=== PATIENT | male | born 1945 ===

== ENCOUNTER 2023-09-29 12:29 | Outpatient (AMB) | payer OTHER, SELFPAY ==
--- NOTE | 2023-09-29 12:36 | MHC.OFFVIS ---
Vital Signs 09/29/23 12:38 Height 5 ft 8 in Weight 154 lb 5.177 oz BMI 23.5 BP 120/76 Blood Pressure Location Lt brachial Position Sitting Pulse 64 Intake Visit Reasons: TIER OVER/ [facility] Dr. Juan Pablo Quintanilla / preop/afib Intake Note: New patient dx afib need pre-op clearance feeling good Executive Admin Required: No Allergies No Known Allergies Allergy (Unverified 02/14/20 15:49) Medication List - Last Reconciled 09/29/23 by Wale Johnson MD atorvastatin 40 mg PO BEDTIME multivitamin (Multiple Vitamins tablet) 1 tab PO DAILY HPI Comments Details: Thank you for referring Juan Pablo in cardiology consultation today for management of atrial fibrillation and for preoperative cardiovascular risk stratification. He has a 78-year-old male was diagnose atrial fibrillation last few years. He was started on Eliquis therapy appropriately although he started noticing skin ecchymosis and decided to stop Eliquis on his own about couple years ago. He said he is done well since then. He has not aware of him being in atrial fibrillation per day when I mentioned that his EKG today shows atrial fibrillation said he does not believe with. However he has no exertional symptoms. He said walks many miles a day and still goes hiking and has no symptoms exertional chest pain or shortness of breath. Denies orthopnea, PND, leg edema. Denies any symptoms of prolonged palpitation irregular heartbeat. No neurologic symptoms. He is scheduled to undergo inguinal hernia surgery in the near future. [facility] Medical History (Updated 09/29/23 @ 16:23 by Wale Johnson MD) Chronic atrial fibrillation Hx of cataract Surgical History Hx of knee surgery Family History Father Brain tumor Mother No problems noted. Social History Patient Tobacco Use Status: Never used Tobacco Review of Systems Const Denies chills, Denies daytime sleepiness, Denies fatigue, Denies fever(s), Denies frequent falls, Denies poor appetite, Denies snoring, Denies stops breathing during sleep, Denies weakness, Denies weight gain and Denies weight loss Eyes Denies loss of vision ENT Denies dizziness and Denies hearing loss Card Denies chest pain, Denies claudication, Denies leg edema, Denies lightheadedness, Denies palpitations, Denies dyspnea, Denies dyspnea on exertion and Denies orthopnea Resp Denies cough, Denies excessive phlegm production, Denies dyspnea, Denies dyspnea on exertion, Denies snoring and Denies wheezing GI Denies abdominal pain, Denies hematochezia, Denies change in bowel habits, Denies nausea and Denies vomiting Denies dysuria and Denies urinary frequency Musc Denies arthralgias, Denies muscle weakness, Denies numbness and Denies other (frequent falls) Skin/Breast Denies nail changes and Denies rash Neuro Denies Abnormal speech present, Denies dizziness, Denies frequent falls, Denies loss of vision, Denies memory loss, Denies numbness and Denies weakness Psych Denies depression and Denies memory loss Endo Denies fatigue and Denies palpitations Daniele/Lymph Reports easy bruising and Reports other (anemia) Aller/Immun Denies wheezing Physical Exam Vital Signs: Last Vital Signs Pulse 64 09/29/23 12:38 BP 120/76 09/29/23 12:38 BMI result Body Mass Index 23.5 Const General: cooperative, comfortable, no acute distress, well developed, alert, awake and Physically active Nutritional Appearance: well nourished and thin Orientation/consciousness: patient oriented x3 Limitations: no limitations HEENT Head: Yes normocephalic and Yes atraumatic Neck Neck: Yes trachea midline, Yes supple and Yes no JVD Resp Effort & Inspection: normal respiratory effort Auscultation: clear to auscultation bilaterally Cardio Jugular venous distension: no JVD Palpation: normal PMI Rate: regular rate Rhythm: abnormal rhythm irregularly irregular Heart sounds: S1 normal heart sound present, S2 normal heart sound present, no click, no gallops, no murmurs and no rubs GI Auscultation: normal bowel sounds Skin General skin exam: no rashes or lesions noted Neuro General: patient oriented x3 and no focal motor deficits Speech: No Abnormal speech present Extrem General: Yes no clubbing, cyanosis or edema Psych Appearance: grossly normal Office Procedures EKG Details: EKG shows atrial fibrillation with controlled ventricular response at 64 beats per minute with right bundle-branch block 51751-[id number], Complete Assessment & Plan Assessment & Plan (1) Chronic atrial fibrillation: Code(s): I48.20 - Chronic atrial fibrillation, unspecified Category: Medical Plan: Chronic rate control atrial fibrillation without any medications for rate control at this point time. He has had no symptoms. He has had no signs or symptoms of heart failure limitation in his exercise capacity. Continue with rate control approach at this point time. Given his baseline rate control does not require additional medicine. CHADSVASc score of 2. I discussed with him about risk of thromboembolic complication related to atrial fibrillation at about 3-4% per year. This can be safely and effectively reduced by 70% by oral anticoagulation therapy and would recommend in his age group with Eliquis therapy which has shown to reduce the risk significantly with reduce risk of intracranial hemorrhage compared to warfarin therapy. Under very long discussion about this. He has not very inclined to start oral anticoagulation therapy but said may be think about it. He will let me know if he changes his mind. I would at that point time recommend Eliquis 5 mg b.i.d. after her renal function test. Recommend echocardiogram to evaluate for secondary structural abnormality related to chronic atrial fibrillation. He is agreeable to this test. (2) Preoperative cardiovascular examination: Code(s): Z01.810 - Encounter for preprocedural cardiovascular examination Category: Medical Plan: Preoperative cardiovascular risk stratification for inguinal hernia surgery. This is low risk surgery. Patient has good functional capacity and has no symptoms concerning for myocardial ischemia no signs or symptoms of heart failure. He has more than 4 METs of physical capacity. At this point time patient does not require additional workup that would change his cardiovascular risk. He is currently optimized to undergo the procedure with low risk for perioperative cardiovascular morbidity mortality. This was discussed with him. Will follow up in the clinic in 1 year's time, sooner p.r.n.. Thank you for allowing me to partake in his care Orders: Orders CA echo transthoracic complete Today I48.20 - Chronic atrial fibrillation, unspecified Coding Level of Care Code New Pt Level 4 (55445) Diagnoses Chronic atrial fibrillation I48.20 Preoperative cardiovascular examination Z01.810 CPT Codes EKG - CPT: 97239-[id number], Complete ([id number])
[2023-09-29 12:38] VITALS: BP 120/76; PULSE 64; BMI 23.5
== END 2023-09-29 13:18 | disposition home or self-care (01) ==
PROVIDERS: PCP Nurse Practitioner Family; Visit Provider Internal Medicine Cardiovascular Disease
DX: I48.20 Chronic atrial fibrillation, unspecified (principal); Z01.810 Encounter for preprocedural cardiovascular examination
CPT/HCPCS: 93010; 99204

== ENCOUNTER → 2023-09-29 12:29 | Outpatient (BNVA) | payer OTHER, SELFPAY | PROVIDERS: PCP Nurse Practitioner Family; Visit Provider Internal Medicine Cardiovascular Disease | DX: Z01.810 Encounter for preprocedural cardiovascular examination (principal); I48.20 Chronic atrial fibrillation, unspecified | CPT/HCPCS: 93005; 99202 ==

== ENCOUNTER → 2023-10-26 08:56 | Outpatient (REF) | payer OTHER, SELFPAY ==
--- NOTE | 2023-10-26 09:05 | CA_ITS ---
Transthoracic Echocardiogram Patient (Last, First, Middle): Juan Pablo Rendon K Gender: Male Date of : 1945 Age: 78 Procedure Date: 10/26/2023 Procedure Type: Transthoracic Echocardiogram Location: OP Height: 172.72 cm Weight: 69.85 kg BSA: 1.83 m2 Heart Rate: bpm BP: 110 / 70 mmHg Slot Service Specialist: ANAY Referring MD: Wale Johnson MD Symptoms: I48.20 - Chronic atrial fibrillation, unspecified Study Quality: Adequate ECG Rhythm: Atrial Fibrillation Conclusions: - The left ventricular systolic function is normal. The calculated ejection fraction is 59% by biplane method. - Severe biatrial enlargement. - There is mild septal tricuspid leaflet prolapse. There is mild tricuspid valve regurgitation. Findings Left Ventricle Normal left ventricular cavity size. There is normal left ventricular wall thickness. The left ventricular systolic function is normal. The calculated ejection fraction is 59% by biplane method. There is no evidence of regional wall motion abnormalities. Diastolic function is indeterminate on the basis of available data. Right Ventricle Mildly increased right ventricular cavity size. There is normal right ventricular systolic function. Atria Severe biatrial enlargement. Aortic Valve There is a normal trileaflet aortic valve. There is mild calcification of the aortic valve. There is no aortic valve stenosis. There is no aortic valve regurgitation. Mitral Valve The mitral valve appears normal. There is trace mitral valve regurgitation. There is no mitral valve stenosis. Pulmonic Valve The pulmonic valve is likely normal. Tricuspid Valve There is mild septal tricuspid leaflet prolapse. There is mild tricuspid valve regurgitation. Great Vessels The asc aorta is normal in size. Small plaque is seen in the sino tubular ridge. Venous The inferior vena cava is mildly dilated and collapses greater than 50% with inspiration. There is evidence of a dilated coronary sinus. Pericardium/Pleural There is no evidence of pericardial effusion. Prior Study Comparison No prior study available for comparison. Measurements 2D Linear Measurements IVSd: 0.94 0.6-0.9/0.6-1.0 cm LVIDd: 4.73 3.9-5.3/4.2-5.9 cm LVIDd Index: 2.58 2.4-3.2/2.2-3.1 cm/m2 LVIDs: 3.12 2.0-3.6 cm LVPWd: 0.87 0.7-1.1 cm LA Diam: 3.20 2.7-3.8/3.0-4.0 cm LAIDs Index: 1.75 1.5-2.3 cm/m2 LV Mass: 179.66 67-162/88-224 g LV Mass Index: 98.17 43-95/49-115 g/m2 LVOT Diam: 2.00 3.0+(-)1.3 cm 2D Systolic Function EF 4C: 65.80 >55% EF 2C: 55.70 >55% EF BiP: 59.40 >55% Mitral Valve MV Pk E: 0.56 MV Decel Time: 254.00 E'Lateral: 12.90 E'Medial: 8.73 E/E' Med: 6.40 E/E' Lat: 4.30 PHT: 74.00 MVA PHT: 2.97 Decel [place]: 2.28 Aortic Valve AoV Pk Arley: 1.15 AoV Mn Arley: 0.80 AoV VTI: 0.25 AoV Pk Grad: 5.00 Aov Mn Grad: 3.00 LAW Cont.VTI: 1.82 LVOT LVOT Pk Arley: 0.70 LVOT Mn Arley: 0.46 LVOT VTI: 0.15 LVOT Pk Grad: 2.00 LVOT Mn Grad: 1.00 LVOT Diam: 2.00 LVOT Area: 3.14 Diastolic Function MV Pk E: 0.56 E'Medial: 8.73 E/E' Med: 6.40 E' Laterial: 12.90 E/E' Lat: 4.30 Right Ventricle TAPSE (mm): 19.60 TVS' Arley: 11.90 Tricuspid Valve TR Pk Arley: 2.58 TR Pk Grad: 27.00 RA Press: 8.00 RVSP: 35.00 Great Vessels Aorta Sinus of Valsalva: 3.43 2.0-3.[address] [place]: 2.59 1.7-3.4 cm Ao Asc: 3.20 2.1-3.4 cm Updated in Other Vendor System with Status of Final Aldair Salter MD electronically signed on 10/28/2023 10:37:57 AM with status of Final
== END ==
LOC: HO.CARD 08:56
PROVIDERS: Visit Provider Internal Medicine Cardiovascular Disease
DX: I48.20 Chronic atrial fibrillation, unspecified (principal)
CPT/HCPCS: 93306

== ENCOUNTER → 2023-10-26 09:05 | Outpatient (BNV) | payer OTHER, SELFPAY | PROVIDERS: Visit Provider Internal Medicine | DX: I36.1 Nonrheumatic tricuspid (valve) insufficiency (principal); I35.8 Other nonrheumatic aortic valve disorders; I51.7 Cardiomegaly | CPT/HCPCS: 93306 ==

== ENCOUNTER → 2024-03-16 07:57 | Outpatient (REF) | payer OTHER, SELFPAY ==
--- NOTE | ~2024-03-16 | NM_ITS ---
Lexiscan Myocardial perfusion study Indication: Preoperative cardiac evaluation Technique: The patient was brought in for a Lexiscan perfusion study on 03/16/2024 and was injected 0.4 mg of Lexiscan intravenously. Within a minute of this injection 25 mCi of sestamibi was given intravenously. Images were obtained using the SPECT gamma camera interlaced with the gating device. Images were obtained in supine position. Resting perfusion study was performed on 03/19/2024. Patient was administered 25 mCi of sestamibi intravenously at rest. Images were then obtained in supine position. Total DLP 99 mGy-cm. Images were processed with the software and compared side to side in short axis, horizontal long axis and vertical long axis views. Findings: Raw aquisition reviewed. Arms by the patient's side. The stress perfusion study showed mildly diminished tracer uptake in the basal part of inferior wall. There is improvement with CT attenuation correction suggestive of diaphragmatic attenuation artifact. The gated study shows normal LV systolic function with calculated LVEF of 70%. LV cavity is normal in size. The gated study shows reduced thickening in the basal part of inferior wall. Resting study shows diminished tracer uptake in the basal part of inferior wall, worse than during stress acquisition and likely artifactual. With CT attenuation correction, there is improvement suggestive of diaphragmatic attenuation artifact. Gating not performed during rest. The findings are consistent with fixed basal inferior perfusion defect. No clear reversible defects. NM/NM cardiolite stress test Impression: 1. Myocardial perfusion imaging study shows fixed basal inferior defect. Possibly diaphragmatic attenuation artifact, but cannot exclude nontransmural infarct. 2. Gated LVEF is 70% during stress. Gating not performed during rest. EKG component of the test reported separately. Electronically signed by: Aldair Salter MD 03/19/2024 05:09 PM EDT
--- NOTE | 2024-03-16 09:32 | CA_ITS ---
Acquisition Time: 2024-03-16 08:01:40 Total Exercise Time: 00:02:00 Test Indications: PREOP Medications: Protocol: LEXISCAN Max HR: 082 BPM 58% of Pred: 141 BPM Max BP: 122/058 mmHG Max Work Load: 1.6 METS Pharmacological stress test with Lexiscan injection, while walking slow on treadmill, without anginal symptoms, without arrythmia, with normtensive response to injection, with nondiagnostic EKG for ischemia. In recovery he was given Aminophylline 75 mg IVP to reverse Lexiscan. Nuclear images pending. Test reviewed with Dr Salter Referred By: Wale Johnson Overread By: DIRK CHEN
== END ==
LOC: HO.CARD 07:57
PROVIDERS: PCP Internal Medicine Endocrinology, Diabetes & Metabolism; Visit Provider Internal Medicine Cardiovascular Disease
DX: Z01.810 Encounter for preprocedural cardiovascular examination (principal); I48.20 Chronic atrial fibrillation, unspecified
CPT/HCPCS: 78452; 93017; A9500; J0280; J2785

== ENCOUNTER → 2024-03-16 09:32 | Outpatient (BNV) | payer OTHER, SELFPAY | PROVIDERS: PCP Internal Medicine Endocrinology, Diabetes & Metabolism; Visit Provider Nurse Practitioner Family | DX: Z01.810 Encounter for preprocedural cardiovascular examination (principal) | CPT/HCPCS: 78452; 93016; 93018 ==

== ENCOUNTER 2024-03-22 10:11 | Outpatient (AMB) | payer OTHER, SELFPAY ==
--- NOTE | 2024-03-22 10:13 | AM.OFFVISNUR ---
Vital Signs 03/22/24 10:24 BP 110/60 Blood Pressure Location Lt brachial Position Sitting Pulse 52 Pulse Source Monitor Intake Visit Reasons: ekg and vital's for pre-op clearance Allergies No Known Allergies Allergy (Unverified 02/14/20 15:49) Nursing Note pt is here for nurse visit pre-op clearance for left shoulder surgery vital check with ekg Office Procedures EKG [id number], Complete
[2024-03-22 10:24] VITALS: BP 110/60; PULSE 52
== END 2024-03-22 10:28 | disposition home or self-care (01) ==
PROVIDERS: PCP Internal Medicine Endocrinology, Diabetes & Metabolism; Visit Provider Internal Medicine Cardiovascular Disease
DX: R94.31 Abnormal electrocardiogram [ECG] [EKG] (principal)
CPT/HCPCS: 93010

== ENCOUNTER → 2024-03-22 10:11 | Outpatient (BNVA) | payer OTHER, SELFPAY | PROVIDERS: PCP Internal Medicine Endocrinology, Diabetes & Metabolism; Visit Provider Internal Medicine Cardiovascular Disease | DX: Z01.810 Encounter for preprocedural cardiovascular examination (principal) | CPT/HCPCS: 93005 ==

== ENCOUNTER 2024-04-08 00:29 | Emergency (ER) | payer OTHER, SELFPAY ==
--- NOTE | ~2024-04-08 | XR_ITS ---
EXAMINATION: XR KNEE, RIGHT CLINICAL INFORMATION: Atraumatic knee effusion. COMPARISON: None available. TECHNIQUE: Four views of the right knee. FINDINGS: There is loss of tricompartment joint space seizure in the lateral compartment with moderate periarticular spurring. There is moderate suprapatellar joint effusion with likely small loose bodies within. No acute fracture or dislocation seen. XR/XR knee RT 4V IMPRESSION: Advanced osteoarthritic changes worse lateral compartment with periocular spurring. Moderate suprapatellar joint effusion with loose bodies within.. Electronically signed by: Tan Bland MD 04/08/2024 06:54 AM [facility]
[2024-04-08 00:38] VITALS: BP 106/76; PULSE 80; O2SAT 95; BMI 22.8
[2024-04-08 00:48] VITALS: BP 120/72; PULSE 66; RESP 16; TEMP 36.4; O2SAT 99
--- NOTE | 2024-04-08 01:36 | ED_ITS ---
HPI - Extremity Problem General Chief complaint: Extremity Problem Stated complaint: RIGHT LOWER LEG PAIN Time Seen by Provider: 04/08/24 01:29 Source: patient Mode of arrival: ambulatory Limitations: no limitations History of Present Illness ED Provider: jose HERNÁNDEZ Narrative: Patient status post left shoulder replacement surgery 04/05 comes here for knee swelling and pain started same day of the surgery no fall no injury no prior history of joint pain the past not on any blood thinner no history of gout no fever no chills Related Data Home Medications ?Medication ?Instructions ?Recorded ?Confirmed atorvastatin 80 mg tablet 40 mg PO BEDTIME 09/29/23 09/29/23 multivitamin (Multiple Vitamins 1 tab PO DAILY 09/29/23 09/29/23 tablet) Allergies Allergy/AdvReac Type Severity Reaction Status Date / Time No Known Allergies Allergy Verified 04/08/24 00:40 Review of Systems 2 Review of Systems: Yes all other systems are reviewed and are negative PMFSH Past Medical History Medical History Chronic atrial fibrillation Hx of cataract Surgical History Hx of knee surgery Family History Family History Father Brain tumor Mother No problems noted. Social History Social History Patient Tobacco Use Status: Never used Tobacco Smoked in Last 30 Days: No Use of substances other than those prescribed or required for medical reasons: No Advance Directives: No Do you have a plan to hurt others: No Plan Physical Exam 2 Vital Signs: Vital Signs: Last Vital Signs Temp 98.5 F 04/08/24 05:34 Pulse 66 04/08/24 05:34 Resp 16 04/08/24 05:34 BP 107/69 04/08/24 05:34 Pulse Ox 98 04/08/24 05:34 O2 Del Method Room Air 04/08/24 05:34 BMI result Body Mass Index 22.8 Appearance: Alert. Oriented X3. No acute distress. Eyes: PERRLA, No Nystagmus ENT: Pharynx normal. Oral Mucosa moist Neck: Normal inspection. Neck supple. CVS: Normal heart rate and rhythm. Pulses normal. Respiratory: No respiratory distress. Equal air entry bilateral, no wheezing/rales/rhonchi Abdomen: Soft and nontender. Bowel sounds are present, no mass palpable, no CVA tenderness Skin: Skin warm and dry. Normal skin color. Normal skin turgor. Extremities: No lower extremity edema. No calf tenderness left shoulder status post surgery right knee with significant swelling and effusion no warmth palpable painful to flex Neuro: Oriented X 3. No motor deficit. No sensory deficit.No cerebellar signs , cranial nerves II-XII intact Extrem: Knee images: 1. Moderate amount of knee effusion with diffuse tenderness no erythema of the skin Medications Administered Discontinued Medications Generic Name Dose Route Start Last Admin Trade Name Freq PRN Reason Stop Dose Admin Ketorolac Tromethamine 60 mg 04/08/24 05:30 04/08/24 05:50 Ketorolac Tromethamine 60 Mg/2 Ml Vial IM 04/08/24 05:31 60 mg ONCE ONE Administration Lidocaine HCl 5 ml 04/08/24 01:36 04/08/24 02:18 Lidocaine Hcl 1 % Mpf 5 Ml Vial INFILTRATI 04/08/24 01:37 5 ml ONCE ONE Administration Lidocaine HCl 5 ml 04/08/24 05:51 04/08/24 06:54 Lidocaine Hcl 1 % Mpf 30 Ml Vial INTRAARTIC 04/08/24 05:52 5 ml ONCE ONE Administration Protocol Methylprednisolone Acetate 80 mg 04/08/24 05:51 04/08/24 06:54 Methylprednisolone Acetate 80 Mg Vial INTRAARTIC 04/08/24 05:52 80 mg ONCE ONE Administration Prednisone 60 mg 04/08/24 02:02 04/08/24 02:18 Prednisone 20 Mg Tablet PO 04/08/24 02:03 60 mg ONCE ONE Administration Medical Decision Making Medical Decision Making [facility] Narrative: Patient with atraumatic right knee effusion clinically pseudo gout/osteoarthritis/gout sample was taken , 55 cc of yellowish colored with good elasticity the fluid was drained still having pain while ambulating will get x- ray of the knee patient clinically does not have septic arthritis although has elevated leukocyte count in the synovial joint fluid likely inflammatory will wait for the gram staining and crystal analysis. Patient has had knee replacement of the left knee about 10 years but right knee never give him much problem although as arthritis patient is very active otherwise 645am on re-evaluation patient again had swelling of the right knee is significant pain x-ray was done which showed severe arthritis knee as patient was done again on the lateral aspect about 60 cc of yellowish fluid was drained with good elasticity again 80 mg of Decadron with 2 mL of lidocaine was injected will do CT scan of the knee if pain continues plan for rehab placement Case discussed with [facility] per diem physical therapist assistant will follow up with Dr. Cleveland Differential Diagnosis Differential Diagnoses: The differential diagnosis associated with the presentation includes Gout/pseudogout/septic arthritis/osteoarthritis Lab Data MDM Lab Attestation statement: I reviewed the patient's lab results. 04/08/24 02:14 04/08/24 02:14 Labs: Lab Results 04/08/24 04/08/24 Range/Units 02:14 02:15 WBC 11.8 H (4.8-10.8) X10*3/uL RBC 3.70 L (4.60-5.80) X10*6/uL Hgb 11.9 L (14.0-18.0) g/dl Hct 33.1 L (42.0-52.0) % MCV 89.5 (80.0-98.0) fL MCH 32.2 (27.0-33.0) pg MCHC 36.0 (31.0-36.0) g/dl RDW 12.9 (11.0-16.0) % Plt Count 151 L (160-400) X10*3/uL MPV 9.0 L (9.4-12.4) fL Immature Gran % (Auto) 0.6 H (0.0-0.4) % Neut % (Auto) 79.2 H (45-73) % Lymph % (Auto) 11.1 L (20-40) % Boyle % (Auto) 8.9 (2-11) % Eos % (Auto) 0.1 (0-4) % Baso % (Auto) 0.1 (0-2) % Lymph # (Auto) 1.3 (1.2-4.9) X10*3/uL Boyle # (Auto) 1.1 (0.1-1.2) X10*3/uL Eos # (Auto) 0.0 (0.0-0.4) X10*3/uL Baso # (Auto) 0.0 (0.0-0.2) X10*3/uL Abs Immat Gran (auto) 0.07 H (0.00-0.03) X10*3/uL Absolute Neuts (auto) 9.4 H (2.0-8.3) x10*3/uL Absolute Nucleated RBC 0.000 (0.0-0.012) X10*3/uL Nucleated RBC % (auto) 0.0 (0.0-0.2) /100WBC Sodium 135 (135-145) mmol/L Potassium 4.0 (3.3-5.1) mmol/L Chloride 103 (96-108) mmol/L Carbon Dioxide 21 L (22-29) mmol/L Anion Gap 15 (12-20) BUN 17 H (9-16) mg/dL Creatinine 0.93 (0.5-1.4) mg/dL Estim Creat Clear Calc 65.6 Estimated GFR > 60 Random Glucose 130 H (60-115) mg/dL Uric Acid 6.1 (3.4-7.0) mg/dL Calcium 9.2 (8.4-10.2) mg/dL Total Bilirubin 1.5 H (0.0-1.0) mg/dL AST 62 H (5-37) U/L ALT 34 (0-40) U/L Alkaline Phosphatase 85 (39-117) U/L Total Protein 6.1 L (6.5-8.0) g/dL Albumin 3.6 (3.5-5.0) g/dL Synovial Source r knee Synovial WBC 46.310 X10*3/uL Synovial RBC 0.003 X10*6/uL Synovial Neutrophils 94 % Synovial Lymphocytes 6 % Procedures Joint Aspiration/Injection Joint Asp./Inject. 1: Time Out Performed: Yes Side of body: right Joint Aspirated: knee Ultrasound Guidance: No Skin Prep: Povidone-Iodine1% Local Anesthetic: lidocaine 1% Amount of anesthesia used (mL): 110 Needle Size Used: 20G Fluid Obtained: viscous Medication Injected, if any: other (Depo-Medrol ) Amount of medication injected (mL): 80 Patient Tolerated Procedure: well and no complications Complications: none Critical Care Time Critical Care Time Critical Care Time: Yes Total Critical Care Time: 50 Attestation: The patient was critically ill with a high probability of imminent or life threatening deterioration. I spent greater than 55???minutes of discontinuous time evaluating the patient,delivering critical care at the bedside, discussing and evaluating pertinent data with consultants. Critical care time does not include time spent performing separately billable procedures or teaching. Total time spent performing critical care was 50???minutes. Discharge Plan Discharge Clinical Impression: Arthritis of knee, right, Pseudogout of knee Patient Disposition: Still a Patient Prescriptions: No Action atorvastatin 80 mg tablet 40 mg PO BEDTIME multivitamin [Multiple Vitamins] Tablet 1 tab PO DAILY Print Language: [place] Islander
[2024-04-08] MEDS: predniSONE 20 MG TABLET 60 MG PO (02:18)
[2024-04-08] MEDS: Lidocaine HCl 1 % MPF 5 ML VIAL INFILTRATI (02:18)
[2024-04-08 02:21] LABS: MANUAL DIFF FLAG NO
[2024-04-08 02:22] LABS: Basophils Percent Auto 0.1 % (0-2); Eosinophils Percent Auto 0.1 % (0-4); Hematocrit 33.1 % (42.0-52.0); Hemoglobin 11.9 g/dl (14.0-18.0); Imm Gran Abs Auto 0.07 X10*3/uL (0.00-0.03); Imm Gran Pct Auto 0.6 % (0.0-0.4); Lymphocytes Absolute Auto 1.3 X10*3/uL (1.2-4.9); Lymphocytes Percent Auto 11.1 % (20-40); Mean Corpuscular Hemoglobin 32.2 pg (27.0-33.0); Mean Corpuscular Volume 89.5 fL (80.0-98.0); Monocytes Absolute Auto 1.1 X10*3/uL (0.1-1.2); Monocytes Percent Auto 8.9 % (2-11); Neutrophils Absolute Auto 9.4 x10*3/uL (2.0-8.3); Neutrophils Percent Auto 79.2 % (45-73); Platelet Count 151 X10*3/uL (160-400); Red Cell Distribution Width 12.9 % (11.0-16.0); White Blood Count 11.8 X10*3/uL (4.8-10.8)
[2024-04-08 02:37] LABS: Alanine Aminotransferase 34 U/L (0-40); Albumin Level 3.6 g/dL (3.5-5.0); Alkaline Phosphatase 85 U/L (39-117); Anion Gap 15 (12-20); Aspartate Amino Transferase 62 U/L (5-37); Bilirubin Total 1.5 mg/dL (0.0-1.0); Blood Urea Nitrogen 17 mg/dL (9-16); Calcium 9.2 mg/dL (8.4-10.2); Carbon Dioxide 21 mmol/L (22-29); Chloride 103 mmol/L (96-108); Creatinine Clr Calc Pharmacy 65.6; Estimated Glomerular Filt Rate > 60; Glucose Random 130 mg/dL (60-115); Sodium 135 mmol/L (135-145); Total Protein 6.1 g/dL (6.5-8.0); Uric Acid 6.1 mg/dL (3.4-7.0)
[2024-04-08 02:50] LABS: RBC Synovial Fluid 0.003 X10*6/uL
[2024-04-08 03:44] LABS: BF Shift QC OK YES; Lymphocytes Synovial Fluid 6 %; Man Diluent Bkgrd OK YES; Neutrophils Synovial Fluid 94 %
[2024-04-08 05:34] VITALS: BP 107/69; PULSE 66; RESP 16; TEMP 36.9; O2SAT 98
[2024-04-08] MEDS: Ketorolac Tromethamine 60 MG/2 ML VIAL IM (05:50)
--- NOTE | 2024-04-08 06:48 | PC.NURSE ---
ambulation trial. pt failed unable to weight bear. lives alone, does not use walker at baseline. MD aware. knee drained for a second time tonight by . xr done. ct scan ordered
[2024-04-08] MEDS: Lidocaine HCl 1 % MPF 30 ML VIAL 5 ML INTRAARTIC (06:54)
[2024-04-08] MEDS: methylPREDNISolone acetate 80 MG VIAL INTRAARTIC (06:54)
[2024-04-08 07:57] LABS: Lactic Acid 0.8 mmol/L (0.5-2.0)
[2024-04-08 09:41] VITALS: BP 116/67; PULSE 97; RESP 16; TEMP 36.9; O2SAT 99
[2024-04-08] MEDS: Acetaminophen 325 MG TABLET 650 MG PO (09:58)
--- NOTE | 2024-04-08 11:55 | MHC.CM.PN ---
CM RECEIVED ED CONSULT, MET WITH PT AT BEDSIDE . PT LIVES ALONE, INDEPENDET AT BASELINE AND STILL DRIVES. PT HAS JUST RECENTLY HAD TOTAL SHOULDER SURGERY AT [facility] LAST TUESDAY. PT IS DUE TO START O.P. THERAPY AT THE [facility] THIS WEEK. PT BELIEVES HE HAS A COPY OF A HCP AT HOME NAMING HIS DAUGHTER MARIE LEMON ([phone]) WILL REQUEST COPY OR COMPLETE NEW ONE IF CAN'T BE FOUND. PCP HOLLY AGUILAR AT [place]. PT PENDING P.T. EVAL TO DETERMINE DC DISPO. PT AWARE AND AGREEABLE TO PLAN.
--- NOTE | 2024-04-08 13:51 | PC.NURSE ---
Pt up oob for ambulation trial per MD. Pt able to ambulate with walker, slightly unsteady gait.
[2024-04-08 18:50] VITALS: BP 107/61; PULSE 70; RESP 18; TEMP 36.7; O2SAT 95
--- NOTE | 2024-04-08 19:38 | PC.NURSE ---
Medication reconciliation attempted, but unable to complete. Pt listed several medications, some without doses. States that he uses [facility] in [place], but there were no medications listed when an electronic confirmation was requested by this RN. All [facility] pharmacies are closed at this time, and unable to confirm medication list at this time. Patient is pleasant/cooperative, but appears forgetful, slightly confused to this RN. Pt gave this RN a handwritten medication list stating (as written): Oxycode 5mg PRN q6h, ASA 5gr BID, Colace 100mg QD, Lipitor (none), Fe e/1 tab QD . Unable to use this list as a reference due to being unclear and inconsistent. This RN spoke with Dorian (pharmacist) at [facility] who states that medication reconciliation attempt will have to be tomorrow morning.
--- NOTE | 2024-04-08 19:40 | MHC.EDTECH ---
This tech took over care of patient at 1900,rounded and introduced self to patient,patient is eating dinner at this time,call graham in reach
[2024-04-08 21:58] VITALS: BP 110/68; PULSE 66; RESP 18; TEMP 36.4; O2SAT 98
--- NOTE | 2024-04-08 22:03 | MHC.EDTECH ---
Patient ate 75% of dinner,vitals taken,belongings list completed,copy placed in chart,call graham in reach
--- NOTE | 2024-04-08 22:26 | PC.NURSE ---
Spoke with daughter (Meagan) who gave medication reconciliation per [facility] paperwork. This matches what the patient wrote on his paper earlier (see previous notes).
[2024-04-09] MEDS: Docusate Sodium 100 MG CAPSULE PO (00:02)
[2024-04-09] MEDS: Milk of Magnesia 30 ML ORAL.SUSP PO (00:02)
[2024-04-09 00:16] VITALS: BP 111/75; PULSE 66; RESP 16; TEMP 36.7; O2SAT 97
--- NOTE | 2024-04-09 00:17 | MHC.EDTECH ---
This pct assumed care of Patient at 2350 ,vitals taken ,patient was assisted to stand at bedside ,void 650 ml ,Patient back in bed ,Patient was setup supplies to brush his teeth ,Warm blanket given .
--- NOTE | 2024-04-09 05:12 | PC.NURSE ---
Took over care from TEOFILO Stuart at 3:30am, pt sleeping at this time.
[2024-04-09 06:00] VITALS: BP 122/67; PULSE 60; RESP 15; TEMP 37.1; O2SAT 97
[2024-04-09] MEDS: Aspirin 325 MG TABLET PO (08:50)
[2024-04-09] MEDS: Ferrous Sulfate 324 MG TABLET.DR PO (08:50)
[2024-04-09] MEDS: Multivitamin TABLET 1 TAB PO (08:50)
[2024-04-09 10:52] LABS: COVID-19 Test Negative (Negative); IDNOW Serial# 6674DD1D
--- NOTE | 2024-04-09 11:32 | MHC.CM.ED ---
Addendum entered by Barbara Pace 04/09/24 14:54: Patient's shoulder orthopedic surgeon is Dr An. T/W spoke with Liliya at 's office via telephone at [phone]. Liliya will update his doctor. Addendum entered by Barbara Pace 04/09/24 13:07: [facility], [place], [facility] and [facility] are able to offer a bed. Accepts bed at [facility]. Original Note: Patient remains in ER overflow. Physical therapy eval completed. Short term rehab is recommended. Met with patient to discuss d/c plan. Patient is active with [facility]. [facility] states [facility]. Patient requesting CM speak with his ex-, Mariposa Rosario, via telephone at [phone]. Spoke with Mariposa via telephone. Mariposa feels STR is an appropriate d/c plan. Referral broadcasted to all facilities [facility] within 15 miles of patient's home. Continue to monitor for d/c needs.
[2024-04-09 13:58] VITALS: BP 113/66; PULSE 63; RESP 18; TEMP 36.4; O2SAT 97
--- NOTE | 2024-04-09 16:01 | PC.NURSE ---
pt walks with steady gait with stand by assist. His left arm is in a sling and he reports some weakness in his right knee. plan for STR dispo tomorrow.
--- NOTE | 2024-04-09 16:08 | MHC.EDTECH ---
PT REQUESTED TO GO ON A LITTLE WALK THIS TECH 1 ASSISTED PT WITH AMBULATION BACK AND FORTH IN OVERFLOW HALLWAY [address] NO COMPLAINTS WERE MADE DURING WALK, PT HAD A STEADY GAIT, RN MADE AWARE
--- NOTE | 2024-04-09 18:18 | PHA.MEDREC ---
Addendum entered by Yazmin Porras RPh 04/09/24 18:45: Med Rec reviewed by this [facility]. Original Note: Pharmacy Consult ? Medication Reconciliation Pharmacy has completed the medication reconciliation. Called [facility] in [place] to see if patient is taking anything and they state he got Oxycodone 5mg tab and last got it 04/06 for 5 days at their facility, other then that medication they state he has not gotten anything filled for at least 6months to a year before that. Spoke with patient and he confirmed the OTC medications on the med rec done by nursing and confirmed he is also a [facility] resident and states he gets medications from there too. He was able to confirm the Oxycodone 5mg tab once tab very 6 hours as needed for pain and states he got that at [facility] in [place]. I got a list from the [facility] and was able to confirm the Atorvastatin 80mg tab 1/2 tab at bedtime. The list also had Diazepam 5mg tabs 1/2 tab at bedtime as needed for Anxiety, Tadalfil 10mg once daily as needed for Erectile Dysfunction. Triamcinolone Cream bid for Dermatitis, the Multivitamin tab that the patient also confirmed and Vitmain D3 tab that the patient knew he was taking also but was not sure on the dosing. He confirmed he took his Atorvastatin 80mg tab 04/05 due to a surgery he had recently got and claims he took his other medications last Tuesday.
[2024-04-09 20:24] VITALS: BP 127/67; PULSE 62; RESP 12; TEMP 36.6; O2SAT 99
[2024-04-09] MEDS: Acetaminophen 325 MG TABLET 650 MG PO (23:14)
[2024-04-10 05:13] VITALS: BP 115/77; PULSE 82; RESP 14; TEMP 36.1; O2SAT 99
[2024-04-10] MEDS: Multivitamin TABLET 1 TAB PO (09:37)
[2024-04-10] MEDS: Ferrous Sulfate 324 MG TABLET.DR PO (09:37)
[2024-04-10] MEDS: Aspirin 325 MG TABLET PO (09:37)
[2024-04-10 11:38] VITALS: BP 119/76; PULSE 73; RESP 16; TEMP 36.7; O2SAT 98
--- NOTE | 2024-04-10 12:39 | MHC.CM.ED ---
Addendum entered by Barbara Pace 04/10/24 14:02: Patient's daughter Meagan made aware via telephone at [phone]. Patient's ex-, Antonio made aware via telephone at [phone]. Original Note: Patient remains in ER overflow. Received notification from REYNA Palm transition of care RN, that patient is not eligible for [facility]. Jeanette Jack made aware. Private pay would be $594/day with 14 days up front. Received notification from [facility] that patient wants to d/c home. Discussed d/c plan with patient. Patient is declining STR at this time and requesting to return home. [facility] aware. Marianne CHEATHAM booked for 230pm. Med nec with chart. Patient, Dimple RED and Nikkie ELY aware. [facility] aware. Continue to monitor for d/c needs.
[2024-04-10 16:52] VITALS: BP 119/76; PULSE 73; RESP 16; TEMP 36.7; O2SAT 98
== END 2024-04-10 17:00 | disposition home or self-care (01) ==
PROVIDERS: Emergency Medicine; Physician Assistant Medical; Emergency Provider Internal Medicine; PCP Nurse Practitioner Family
DX: M10.061 Idiopathic gout, right knee (principal); M79.661 Pain in right lower leg; M17.11 Unilateral primary osteoarthritis, right knee; R26.2 Difficulty in walking, not elsewhere classified; Z11.52 Encounter for screening for COVID-19; Z79.899 Other long term (current) drug therapy
CPT/HCPCS: 20610; 36415; 73564; 80053; 82945; 83605; 83615; 84550; 84560; 85025; 87070; 87073; 87205; 87635; 89051; 89060; 96372; 97162; 99285; J1010; J1885; J2003

== ENCOUNTER 2024-10-02 12:17 | Outpatient (AMB) | payer OTHER, SELFPAY ==
--- NOTE | 2024-10-02 12:31 | A.OFFVIS_ITS ---
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 He said he is doing well. He underwent a left shoulder replacement surgery in March last year. It remains very active. He said he is still swims and can walk for many miles without any restriction. Denies any exertional chest pain or shortness of breath. Denies any orthopnea, PND, leg edema. No prolonged palpitation irregular heartbeat. No lightheadedness, syncope. He was switch to Xarelto which she prefers taking as it is once a day at 20 mg. He is currently not on any rate lowering medications. [facility] Medical History Chronic atrial fibrillation Hx of cataract Surgical History Hx of knee surgery Family History Father Brain tumor Mother No problems noted. Social History Patient Tobacco Use Status: Never used Tobacco Review of Systems Const Denies chills, Denies fatigue, Denies fever(s), Denies frequent falls, Denies weakness, Denies weight gain and Denies weight loss ENT Denies dizziness Card Denies chest pain, Denies leg edema, Denies lightheadedness, Denies palpitations, Denies dyspnea, Denies dyspnea on exertion, Denies orthopnea and Denies other (loss of consciousness) Resp Denies cough, Denies dyspnea and Denies dyspnea on exertion GI Denies hematochezia and Denies change in stool character Musc Denies abnormal gait, Denies muscle weakness, Denies numbness, Denies radiating pain into limb and Denies tingling Neuro Denies Abnormal speech present, Denies abnormal gait, Denies dizziness, Denies frequent falls, Denies numbness, Denies tingling and Denies weakness Endo Denies fatigue and Denies palpitations Physical Exam Vital Signs: BMI result Body Mass Index 22.1 Const General: cooperative, comfortable, no acute distress, well developed, alert, awake and Physically active Nutritional Appearance: well nourished and thin Orientation/consciousness: patient oriented x3 Limitations: no limitations HEENT Head: Yes normocephalic and Yes atraumatic Neck Neck: Yes trachea midline, Yes supple and Yes no JVD Resp Effort & Inspection: normal respiratory effort Auscultation: clear to auscultation bilaterally Cardio Jugular venous distension: no JVD Palpation: normal PMI Rate: regular rate Rhythm: abnormal rhythm irregularly irregular Heart sounds: S1 normal heart sound present, S2 normal heart sound present, no click, no gallops, no murmurs and no rubs GI Auscultation: normal bowel sounds Skin General skin exam: no rashes or lesions noted Neuro General: patient oriented x3 and no focal motor deficits Speech: No Abnormal speech present Extrem General: Yes no clubbing, cyanosis or edema Psych Appearance: grossly normal Office Procedures EKG Details: EKG shows atrial fibrillation with slow ventricular response with incomplete right bundle-branch block 82973-[id number], Complete Assessment & Plan Assessment & Plan (1) Chronic atrial fibrillation: Code(s): I48.20 - Chronic atrial fibrillation, unspecified Category: Medical Plan: Chronic rate control atrial fibrillation with actually slow ventricular response most likely due to excellent vagal tone from as overall good physical capacity. Currently not on any rate lowering medications. No signs or symptoms of heart failure. He does not have any other cardiac symptoms. Continue current oral anticoagulation Xarelto. Importance of this was discussed. Semi annual renal function test should be pursued. He has significant bi atrial enlargement unlikely to pursue rhythm control approach. Follow-up echocardiogram in 1 year's time (2) Preoperative cardiovascular examination: Code(s): Z01.810 - Encounter for preprocedural cardiovascular examination Category: Medical Plan: Preoperative cardiovascular risk stratification for right shoulder replacement surgery. This is considered intermediate risk surgery. He currently has excellent functional capacity with easily more than 4 Mets of physical capacity. No signs or symptoms of heart failure. At this point time he is currently optimized to undergo the surgery with low risk for perioperative cardiovascular morbidity mortality. Xarelto can be withheld for few days prior to the surgery and resume as soon as possible after surgery with associated thromboembolic risk. Will follow up in the clinic in 1 year's time, sooner p.r.n.. Thank you for allowing me to partake in his care Coding Level of Care Code Est Pt Level 4 (92167) Complex EM visit Add On G2211 Diagnoses Chronic atrial fibrillation I48.20 Preoperative cardiovascular examination Z01.810 CPT Codes EKG - CPT: 52484-[id number], Complete ([id number])
[2024-10-02 12:32] VITALS: BP 114/66; PULSE 43; BMI 22.1
--- OUTSIDE RECORDS SUMMARY | 2024-10-02 13:43 | XMS_ITS | Clinical Summary ---
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 Name Role Phone Unavailable Primary Care Provider Unavailabl e Social History Tobacco Use Types Packs/Day Years Used Date Smoking Tobacco: Never Assessed Sex and Gender Information Value Date Recorded Sex Assigned at Not on file Legal Sex Male 11:01 PM EST Gender Identity Not on file Sexual Orientation Not on file Plan of Treatment Health Maintenance Due Date Last Done Comments DTaP,Tdap,and Td Vaccines (1 - Tdap) 01[birth year]26/1964 Pneumococcal Vaccine: 50+ Ye ars (1 of 1 - PCV) 1995 Zoster Vaccines (1 of 2) 1995 RSV Immunization Adult Patie nts (1 - 1-dose 75+ series) 01/26/2020 COVID-19 Vaccine ( - 2023-2 5 season) 2024 Influenza Vaccine (Season Ended) 2025 HIB Vaccines Aged Out No longer eligi ble based on patient's age to complete this topic HPV Vaccines Aged Out No longer eligi ble based on patient's age to complete this topic Hepatitis A Vaccines Aged Out No long er eligible based on patient's age to complete this topic Hepatitis B Vaccines Aged Out No long er eligible based on patient's age to complete this topic IPV Vaccines Aged Out No longer eligi ble based on patient's age to complete this topic MMR Vaccines Aged Out No longer eligi ble based on patient's age to complete this topic Meningococcal ACWY Vaccine Aged Out N o longer eligible based on patient's age to complete this topic Meningococcal B Vaccine Aged Out No l onger eligible based on patient's age to complete this topic RSV Immunization Patients Un paul 20 months Aged Out No longer eligible b ased on patient's age to complete this topic Varicella Vaccines Aged Out No longer eligible based on patient's age to complete this topic
--- OUTSIDE RECORDS SUMMARY | 2024-10-02 13:43 | XMS_ITS | Data Portability ---
Author Organization [facility], [id number] Address [address] [place] [address] Assessment No assessment recorded. Plan of Treatment Reminders Order Date Submit Date Provider Last Modified By Organization Details Last Modified Time Details Appointments None record ed. Lab None record ed. Referral None record ed. Procedures None record ed. Surgeries None record ed. Imaging None record ed. Medication Orders None record ed. Patient TargetsNo targets recorded. Patient InstructionsNo instructions recorded. Reason for Referral None Reported. Medical Equipment None Reported. Vitals None Recorded Social History None recorded. Functional Status None recorded. Mental Status None recorded. Family History Nothing Reported. Medical History No medical history recorded. Past Encounters Encounter ID Performer Location Encounter Start Date Encounter Closed Date Diagnosis/Indication Diagnosis SNOMED-CT Code Diagnosis ICD10 Code Diagnosis Note [id number] [facility] [place] [address] 02/28/2021 15:15:48 02/28/2021 18:55:33 [id number] [address] [place] [address] 08/06/2020 12:45:41 08/06/2020 14:20:51 [id number] [address] [place] [address] 11/25/2019 11:31:10 11/25/2019 13:32:27 Health Concerns Section Related Observation LastModified by Organization Detai ls LastModified Time None Recorded Concern Status LastModified by Organization Details LastModified Time None Recorded Advance Directives Directive None Recorded Payers None recorded.
== END 2024-10-02 12:56 | disposition home or self-care (01) ==
LOC: HO.HCS 12:18
PROVIDERS: PCP Nurse Practitioner Family; Visit Provider Internal Medicine Cardiovascular Disease
DX: I48.20 Chronic atrial fibrillation, unspecified (principal); Z01.810 Encounter for preprocedural cardiovascular examination
CPT/HCPCS: 93010; 99214; G2211

== ENCOUNTER → 2024-10-02 12:17 | Outpatient (BNVA) | payer OTHER, SELFPAY | PROVIDERS: PCP Nurse Practitioner Family; Visit Provider Internal Medicine Cardiovascular Disease | DX: Z01.810 Encounter for preprocedural cardiovascular examination (principal); I48.20 Chronic atrial fibrillation, unspecified; I45.19 Other right bundle-branch block; R94.31 Abnormal electrocardiogram [ECG] [EKG] | CPT/HCPCS: 93005; 99212 ==